=== PATIENT | female | born 1990 | race Caucasian/White ===

== ENCOUNTER 2021-06-06 18:04 | Emergency (ER) | payer OTHER ==
[2021-06-06 18:46] VITALS: BP 115/87; PULSE 77; TEMP 98.8; BMI 19.5
== END 2021-06-06 22:20 | disposition home or self-care (01) ==
LOC: FER 18:04
DX: S09.92XA Unspecified injury of nose, initial encounter (principal); W01.0XXA Fall on same level from slipping, tripping and stumbling without subsequent striking against object, initial encounter; Y93.02 Activity, running
CPT/HCPCS: 70160-TC-FY; 70450-TC; 99284-25

== ENCOUNTER 2022-12-08 23:06 | Emergency (ER) | payer OTHER ==
[2022-12-08 23:12] VITALS: RESP 18; BMI 19.5
[2022-12-08 23:20] VITALS: BP 107/79; PULSE 88; TEMP 98.6
== END 2022-12-09 00:11 | disposition home or self-care (01) ==
LOC: FER 23:06
DX: R07.89 Other chest pain (principal)
CPT/HCPCS: 99282-25